=== PATIENT | male | born 1985 | race American Indian/Alaskan Native ===

== ENCOUNTER 2019-07-11 16:57 | Emergency (ER) | payer OTHER ==
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
[2019-07-11 20:15] VITALS: BP 149/94
[2019-07-11] MEDS ORDERED: IBUPROFEN 800 MG TAB PO ONE (20:36)
[2019-07-11] MEDS ORDERED: traMADol 50 MG TAB PO ONE (20:36)
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
== END 2019-07-12 00:09 | disposition home or self-care (01) ==
LOC: ED 16:57
DX: S16.1XXA Strain of muscle, fascia and tendon at neck level, initial encounter (principal); S60.222A Contusion of left hand, initial encounter; F17.200 Nicotine dependence, unspecified, uncomplicated; Z79.899 Other long term (current) drug therapy; V49.49XA Driver injured in collision with other motor vehicles in traffic accident, initial encounter; Y93.89 Activity, other specified; Y92.410 Unspecified street and highway as the place of occurrence of the external cause; Y99.8 Other external cause status
CPT/HCPCS: 72040